=== PATIENT | female | born 1965 | race Caucasian/White ===

== ENCOUNTER 2016-04-28 10:54 | Emergency (ER) | payer BC, OTHER ==
[~2016-04-28] VITALS: Ht 165.1 cm; Wt 63.5 kg
[~2016-04-28 10:54] MED LIST: SODIUM CHLORIDE 0.9% 1,000 ML IV ONE
[2016-04-28] MEDS ORDERED: DOPamine 1600MCG/ML 250 ML IV ONE ×2 (11:07→11:15)
[2016-04-28] MEDS ORDERED: SODIUM BICARBONATE 8.4% INJ 50ML SYRINGE ONE ×2 (11:10→11:43)
[2016-04-28] MEDS ORDERED: EPINEPHrine HCL 1 MG/10 ML SYRG ONE ×2 (11:43→12:01)
[2016-04-28 11:45] VITALS: BP 100/66
[2016-04-28] MEDS ORDERED: SODIUM BICARBONATE 8.4 % INJ 50ML VIAL IV ONE ×2 (12:00)
[2016-04-28] MEDS ORDERED: EPINEPHrine HCL 1 MG/10 ML SYRG IV ONE ×3 (12:00→12:15)
[2016-04-28] MEDS ORDERED: CALCIUM CHLOR(10%) 100MG/ML 10ML SYRINGE IV ONE (12:02)
[2016-04-28] MEDS ORDERED: CALCIUM CHLOR(10%) 100MG/ML 10ML SYRINGE IV PRN (12:04)
[2016-04-28] MEDS ORDERED: CALCIUM CHL 100MG/ML 1,000 MG in D5W 5% 100 ML IV ONE (12:30)
[2016-04-28 12:39] LABS: Urine Bilirubin Negative (Negative); Urine Blood Negative /uL (Negative); Urine Color Yellow (Yellow); Urine Glucose Normal (Normal); Urine Ketone Negative (Negative); Urine Nitrite Negative (Negative); Urine RBC <1 /hpf (0 - 4); Urine Urobilinogen Normal (Negative); Urine pH 6.5 (5.0-8.0)
[2016-04-28 13:05] LABS: Hematocrit 31.8 % (36.0-46.0); Hemoglobin 9.8 g/dL (12.2-16.2); Mean Corpuscular Hemoglobin 28.5 pg (28.0-32.0); Mean Corpuscular Hgb Conc. 30.8 g/dL (32.0-36.0); Mean Corpuscular Volume 92.3 fL (80.0-100.0); Mean Platelet Volume 9.6 fL (7.4-10.4); Platelet Count (auto) 308 10^3/uL (140-450); Red Cell Distribution Width 14.6 % (11.6-16.0); SUSPECT VIEW TRANSMISSION; White Blood Cell 14.6 10^3/uL (4.4-10.8)
[2016-04-28 13:07] LABS: Promyelocytes % 0; Reactive Lymphocytes 0
[2016-04-28 13:28] LABS: Albumin 1.7 g/dL (3.4-5.0); BUN/Creatinine Ratio 7.2; Calcium 9.9 mg/dL (8.5-10.1); Magnesium 3.1 mg/dL (1.6-2.6); Potassium 4.5 mmol/L (3.5-5.1)
[2016-04-28 14:00] VITALS: BP 77/47
[2016-04-28 14:00] LABS: Bilirubin, Total 0.6 mg/dL (0.2-1.0); Total Protein 4.6 g/dL (6.4-8.2)
[2016-04-28 14:05] LABS: Metamyelocytes % 2; Myelocytes % 1
[2016-04-28 14:06] LABS: Platelet Estimate Adequate
[2016-04-28 14:20] LABS: Partial Thromboplastin Time 35.1 sec (22.64-33.71)
[2016-04-28 14:21] LABS: INR 1.33 (0.9-1.15); Prothrombin Time 13.7 sec (9.37-12.3)
[2016-04-28] MEDS ORDERED: SODIUM CHLORIDE 0.9% 1,000 ML IV ONE (14:30)
[2016-04-28 16:00] VITALS: BP 121/95
[2016-04-28 16:07] VITALS: BP 57/37
[2016-04-28 18:00] VITALS: BP 44/31
== END 2016-04-28 14:23 | disposition expired ==
LOC: EDBD 10:54 → ER 11:04
DX: I46.9 Cardiac arrest, cause unspecified (principal); G93.1 Anoxic brain damage, not elsewhere classified; E11.21 Type 2 diabetes mellitus with diabetic nephropathy; K72.90 Hepatic failure, unspecified without coma; J69.0 Pneumonitis due to inhalation of food and vomit; E83.41 Hypermagnesemia; R79.1 Abnormal coagulation profile; E46 Unspecified protein-calorie malnutrition; G89.4 Chronic pain syndrome; D64.9 Anemia, unspecified
CPT/HCPCS: 36415; 36600; 71010; 80053; 81001; 82140; 82805; 82962; 83735; 84484; 85007; 85027; 85049; 85379; 85610; 85730; 87070; 87205; 92950; 94002; 96360; 96361; 99291; G0434; J0171; J1265; J7030; 87077; 87186; 93005; J7060